=== PATIENT | female | born 1935 | race Caucasian/White ===

== ENCOUNTER 2019-09-17 14:24 | Emergency (ER) | payer MEDICARE, OTHER, SELFPAY ==
[2019-09-17 14:25] VITALS: BP 145/70; PULSE 82; RESP 16; TEMP 36.6; O2SAT 91; BMI 24.7
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
--- NOTE | 2019-09-17 14:41 | CT_ITS ---
WS: [id number] CT head wo con* [id number] REASON FOR EXAM: ams IV CONTRAST ADMINISTERED: None. TOTAL EXAM DLP: 792.[address] scans at [facility] use at least one of these dose optimization techniques: automat ed exposure control; mA and/or kV adjustment per patient size (includes targeted exams where dose is matched to clinical indication); or iterative reconstruction. 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 The posterior fossa appear to be essentially normal. The fourth ventricle is dilated. 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 There is transependymal migration of spinal fluid suggesting interval atrophy. There is effacement of the sulci in the frontal lobes. The paraventricular areas show no definite infarcted areas or mass effect. The mari was normal. The cerebellum showed no definite abnormalities. CT/CT head wo con* [id number] IMPRESSION: Moderately advanced cerebral atrophy. 

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
[2019-09-17 15:28] LABS: Basophils # 0.1 10^3/uL (0.0-0.1); Basophils % 0.8 %; Eosinophils # 0.2 10^3/uL (0.0-0.8); Hematocrit 40.3 % (37.0-47.0); Hemoglobin 12.4 g/dL (11.5-15.3); Lymphocytes # 1.8 10^3/uL (0.8-4.8); Lymphocytes % 16.7 %; Mean Corpuscular HGB Conc 30.8 g/dL (30.0-36.0); Mean Corpuscular Hemoglobin 32.3 pg (28.0-34.0); Mean Corpuscular Volume 104.9 fL (81-99); Mean Platelet Volume 9.5 fL (7.4-10.4); Monocytes # 1.1 10^3/uL (0.2-0.9); Monocytes % 10.4 %; Neutrophils # 7.2 10^3/uL (1.8-7.7); Nucleated Red Blood Cells % 0 %; Platelet Count 292 10^3/cmm (130-400); Red Blood Count 3.84 10^6/uL (4.1-5.3); White Blood Count 10.5 10^3/uL (4.0-10.0)
--- NOTE | 2019-09-17 15:42 | XR_ITS ---
WS: [id number] XR KUB portable [id number] REASON FOR EXAM: possible FB in stomach FINDINGS: Heavy arteriosclerotic changes in the aorta and iliac arteries are seen. As well as the fem oral arteries. There is debris seen in the colon but no definite lesions in the stomach are identifie d. The lumbar spine and pelvis bony structures appear to be essentially normal. XR/XR KUB portable [id number] IMPRESSION: Nonspecific abdominal findings. Heavy arteriosclerotic changes of the aorta deloris ac arteries.
[2019-09-17 15:52] VITALS: BP 146/75; PULSE 74; RESP 16; O2SAT 90
[2019-09-17 16:09] LABS: Alanine Aminotransferase 81 U/L (0-33); Albumin Level 3.8 g/dL (3.5-5.2); Alkaline Phosphatase 78 IU/L (35-105); Anion Gap 17.9 (5-19); Aspartate Amino Transferase 48 U/L (0-32); Blood Urea Nitrogen 22 mg/dL (8-23); Calcium 9.5 mg/dL (8.5-10.5); Carbon Dioxide 23 mmol/L (22-29); Chloride 97 mmol/L (98-107); Creatinine Clr Calc Pharmacy 24.6049; Globulin 3.6 g/dL (1.3-4.6); Glucose 317 mg/dL (65-115); Osmolality Calculated 285 mOsm/kg (285-295); Potassium 4.9 mmol/L (3.5-5.1); Salicylate 0.6 mg/dL (3-10); Sodium 133 mmol/L (136-145); Thyroid Stimulating Hormone 7.26 uIU/mL (0.27-4.20); Total Bilirubin 0.4 mg/dL (0.15-1.2); Total Protein 7.4 g/dL (6.6-8.7)
[2019-09-17 16:25] LABS: Add Urine Microscopic? NO
[2019-09-17 16:27] LABS: Acetaminophen < 5.0 ug/mL (10-30)
[2019-09-17 16:37] LABS: Amphetamines Screen Urine Negative (Negative); Barbiturates Screen Urine Negative (Negative); Benzodiazepines Screen Urine Negative (Negative); Cocaine Screen Urine Negative (Negative); Opiate Screen Urine Negative (Negative); PCP Screen Urine Negative (Negative); THC Screen Urine Negative (Negative)
[2019-09-17 16:56] LABS: Bilirubin Urine Neg (NEGATIVE); Blood Urine Neg (Negative); Glucose Urine UA 4+ (Normal); Ketones Urine Negative (Negative); Leukocyte Esterase Urine Negative (Negative); Nitrate Urine Negative (Negative); Protein Urine Neg (Negative); Specific Gravity, Urine 1.015 (1.005-1.030); Urine Appearance Clear (CLEAR); Urine Color Yellow (Yellow); Urobilinogen Urine Norm (Negative); pH Urine 5 (5-7)
[2019-09-17 18:06] VITALS: BP 120/52; PULSE 78; RESP 18; O2SAT 92
[2019-09-17 20:00] VITALS: BP 128/74; PULSE 82; RESP 16
[2019-09-17] MEDS: insulin regular-human 100 units/1 mL 5 UNIT IVP (20:18)
[2019-09-17 20:30] VITALS: PULSE 76; RESP 16; O2SAT 96
--- NOTE | 2019-09-17 20:36 | PC.NURSE ---
patient up to bedside commode
--- NOTE | 2019-09-17 20:40 | PC.NURSE ---
Received call from [facility] that they couldn't accept patient because her labs were off and they needed an ekg.
--- NOTE | 2019-09-17 20:43 | PC.NURSE ---
Received call from [facility], they need glucose below 200 and they will accept patient.
--- NOTE | 2019-09-17 21:00 | PC.NURSE ---
Called back to [facility], ekg faxed and was told that they needed her blood sugar blow 200, informed and meds given.
[2019-09-18] MEDS: insulin regular-human 100 units/1 mL 5 UNIT SUBCUT (00:41)
[2019-09-18 01:00] VITALS: PULSE 74; RESP 16; O2SAT 98
--- NOTE | 2019-09-18 02:00 | PC.NURSE ---
Blood sugar 105n faxed results to [facility] and attempt multiple time to call without an answer.
--- NOTE | 2019-09-18 02:12 | PC.NURSE ---
Fingerstick glucose 105, NELY Tripp notified.
--- NOTE | 2019-09-18 02:38 | PC.NURSE ---
Patient given a snack and assisted up for BRP.
[2019-09-18 06:00] VITALS: BP 124/76; PULSE 78; RESP 16; O2SAT 96
--- NOTE | 2019-09-18 06:44 | PC.NURSE ---
Attempted to contact [facility] again with no answer.
--- NOTE | 2019-09-18 07:10 | PC.NURSE ---
Spoke with Erin at [facility] she stated that she will resubmit thsi patient to her Dr. and she would like another BMp drawn and faxed.
[2019-09-18 07:53] LABS: Glucose Point of Care 105 mg/dL (70-110)
[2019-09-18 07:53] LABS: Glucose Point of Care 207 mg/dL (70-110)
[2019-09-18 07:53] LABS: Glucose Point of Care 270 mg/dL (70-110)
[2019-09-18 07:57] LABS: Alanine Aminotransferase 74 U/L (0-33); Albumin Level 3.7 g/dL (3.5-5.2); Alkaline Phosphatase 67 IU/L (35-105); Anion Gap 13.6 (5-19); Aspartate Amino Transferase 47 U/L (0-32); Blood Urea Nitrogen 24 mg/dL (8-23); Calcium 9.2 mg/dL (8.5-10.5); Carbon Dioxide 27 mmol/L (22-29); Chloride 102 mmol/L (98-107); Creatinine Clr Calc Pharmacy 24.6049; Glucose 130 mg/dL (65-115); Osmolality Calculated 285 mOsm/kg (285-295); Potassium 4.6 mmol/L (3.5-5.1); Sodium 138 mmol/L (136-145); Total Bilirubin 0.4 mg/dL (0.15-1.2); Total Protein 6.7 g/dL (6.6-8.7)
[2019-09-18 09:28] VITALS: BP 112/58; PULSE 72; RESP 16; TEMP 36.9; O2SAT 95
[2019-09-18 13:44] LABS: Glucose Point of Care 132 mg/dL (70-110)
== END 2019-09-18 11:09 ==
PROVIDERS: Nurse Practitioner Family; Emergency Provider Family Medicine; Family Provider Internal Medicine; PCP Internal Medicine
DX: F03.91 Unspecified dementia, unspecified severity, with behavioral disturbance (principal); Z79.82 Long term (current) use of aspirin; Z79.84 Long term (current) use of oral hypoglycemic drugs; Z79.01 Long term (current) use of anticoagulants; Z87.891 Personal history of nicotine dependence
CPT/HCPCS: 12345; 36415; 36416; 70450; 71045; 74018; 80053; 80306; 80307; 81003; 82962; 84443; 85025; 96372; 96374; 96375; 96376; 99284; 99285; J1815

== ENCOUNTER 2019-11-09 08:48 | Emergency (ER) | payer MEDICARE, OTHER, SELFPAY ==
[2019-11-09] VITALS (15 sets, daily range): BP systolic 90–170; BP diastolic 46–65; PULSE 60–62; RESP 10–21; TEMP 36.9; O2SAT 87–99; BMI 24.7
--- NOTE | 2019-11-09 09:05 | ECG_ITS ---
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 Measurements Intervals [place] Rate: 60 P: 265 IA: 227 QRS: 266 QRSD: 177 T: 95 QT: 503 QTc: 503 Interpretive Statements ELECTRONIC ATRIAL PACEMAKER ELECTRONIC VENTRICULAR PACEMAKER ABNORMAL RHYTHM ECG No previous ECG available for comparison Electronically Signed On 11-09-2019 21:52:25 CDT by Tamara Palma M.D. [id number]
--- NOTE | 2019-11-09 09:05 | XRR_ITS ---
PROCEDURE INFORMATION: Exam: XR Chest, 1 View Exam date and time: 11/09/2019 9:38 AM Age: 84 years old Clinical indication: Type not specified; Prior surgery; Surgery date: 6+ months; Surgery type: Open heart; Patient HX: C/O chest pain and shortness of breath; Additional info: SOB TECHNIQUE: Imaging protocol: XR of the chest Views: 1 view. COMPARISON: CR XR chest 1V portable [id number] 09/17/2019 3:01 PM FINDINGS: The thorax is partially obscured by overlying EKG leads. Tubes, catheters and devices: Bilateral pacemaker wires. Lungs: Asymmetric left basilar airspace/pleural disease. Interstitial prominence. Heart/Mediastinum: Cardiomegaly and increased caliber of the pulmonary vasculature. Bones/joints: Osteopenia. Median sternotomy. XR/XR chest 1V portable [id number] IMPRESSION: 1. Cardiomegaly and increased caliber of the pulmonary vasculature. 2. Asymmetric left basilar airspace/pleural disease.
--- NOTE | 2019-11-09 09:08 | ED_ITS ---
HPI - General Adult General: Chief complaint: General Medical Stated complaint: LOW O2 SATS Time Seen by Provider: 11/09/19 09:06 History of Present Illness: HPI narrative: 84-year-old female who presents to the emergency room with complaints of leg pain knee pain and swelling particularly in her left arm. Some of it appears chronic there is also reportedly she was hypoxic at the longterm evidently they told EMS on 6 L she was barely keeping 86% but on arrival here at 2 L/min she is at 97% her some confusion with the EMS staff asked whether or not she is regularly on oxygen at the longterm. When asked the patient what wrong she repeatedly states there is water running out of my arms and legs all over me. Her clothing is dry she does have a small skin tear on her left arm posterior aspect of the hyperthenar eminence where there is a little bit of serous fluid drainage no active bleeding. There is no signs of infection. She denies any significant shortness of breath or chest pain at this time. She is a resident of a longterm. Onset (ago): hour(s) Location: upper extremity Radiation: non-radiation Severity: mild Relieving factors: none Exacerbating factors: none Associated symptoms: Reports confusion, short of breath and weakness; Deny cough, diaphoresis, dyspnea, fevers/chills, nausea, syncope or vomiting Treatments prior to arrival: none Review of Systems Const: Denies: diaphoresis ENMT: Denies: throat pain, ear or mastoid pain, nasal discharge or nasal congestion Card: Denies: syncope Resp: Denies: dyspnea, productive cough or non-productive cough GI: Denies: abdominal pain, nausea, vomiting, hematemesis, coffee ground marcie sis, diarrhea, constipation, bloating, hematochezia or melena : Denies: flank pain, difficulty voiding, dysuria, urinary frequency or urinary urgency Neuro: Reports: confusion PFSH ED PFSH: Social History Smoking and tobacco status: never smoked Physical Exam Const: COMMON NORMALS: no acute distress GENERAL APPEARANCE: cooperative and comfortable HENMT: COMMON NORMALS: normocephalic, atraumatic, hearing grossly normal bilaterally, external ears normal, EAC's normal, TM's normal bilaterally, Normal nasal mucous membranes and turbinates present, moist oral mucous membranes and oropharynx normal HEAD & SCALP: normocephalic and atraumatic NOSE: Normal nasal mucous membranes and turbinates present EXTERNAL EAR: Yes external ears normal EXTERNAL AUDITORY CANAL: EAC's normal TYMPANIC MEMBRANE: TM's normal bilaterally Eye: COMMON NORMALS: Equal, round and reactive pupils present, EOMs intact bilaterally, conjunctivae normal and no scleral icterus CONJUNCTIVA: Yes conjunctivae normal PUPIL: Yes Equal, round and reactive pupils present Neck/C-Spine: COMMON NORMALS: full ROM, no lymphadenopathy, supple and no JVD Lymph: LYMPHATIC: no lymphadenopathy noted and no lymphedema noted Resp: COMMON NORMALS: normal respiratory effort, No retractions, No use of accessory muscles and clear to auscultation bilaterally AUSCULTATION: clear to auscultation bilaterally Cardio: COMMON NORMALS: no JVD, regular rate, regular rhythm and No murmurs present (Cardio) RATE: regular rate RHYTHM: regular rhythm GI: COMMON NORMALS: Soft to palpation and No hepatosplenomegaly present AUSCULTATION: Yes normoactive bowel sounds PALPATION: Yes Soft to palpation, No Tenderness to palpation present (GI), No Guarding due to palpation present (GI) and Yes No hepatosplenomegaly present Extremity: COMMON NORMALS: normal to inspection, capillary refill normal, no clubbing, cyanosis or edema, no calf tenderness and no pedal edema Skin: COMMON NORMALS: no rashes or lesions noted GENERAL SKIN EXAM: no rashes or lesions noted Course Vital Signs: Vital signs: Vital Signs Temperature 98.4 F 11/09/19 08:48 Pulse Rate 60 11/09/19 15:07 Respiratory Rate 16 11/09/19 15:07 Blood Pressure 102/57 11/09/19 15:07 Pulse Oximetry 95 11/09/19 15:07 MDM - General Adult MDM Narrative: Medical decision making narrative: Patient a large loose stool foul-smelling in the emergency room concerning for C. difficile. It is prolonged her stay C. difficile was indeed positive. We will treat her as above. I did increase her Lasix for 3 days asked her to go back to 20 mg daily after 3 days to help with the swelling. Noted on the discharge directions it was at 5 days was unable leave the computer to change it so we made a notation elsewhere on the chart and reviewed with the patient and her family member. Lab Data: Labs: Lab Results 06/26/20 06/26/20 Range/Units 09:43 09:43 WBC 12.0 H (4.0-10.0) 10^3/ uL RBC 4.09 L (4.1-5.3) 10^6/u L Hgb 12.1 (11.5-15.3) g/dL Hct 42.5 (37.0-47.0) % MCV 103.9 H (81-99) fL MCH 29.6 (28.0-34.0) pg MCHC 28.5 L (30.0-36.0) g/dL RDW 14.3 (12.1-15.1) % Plt Count 329 (130-400) 10^3/c mm MPV 9.3 (7.4-10.4) fL Total Counted 100 (0-100) Absolute Neutrophi ls 8.0 H (1.4-6.5) 10^3/c mm Segmented Neutroph ils 66 % Abs Segm Neuts (Ma n) 7.9 H (1.6-7.1) 10/cmm Band Neutrophils 1.0 % Abs Band Neuts (Ma n) 0.1 (0.0-1.2) 10^3/c mm Lymphocytes (Manua l) 18 % Monocytes (Manual) 9.0 % Absolute Monocytes 1.1 H (0.1-0.6) 10^3/c mm Eosinophils (Manua l) 6 % Absolute Eosinophi ls 0.7 (0.0-0.7) 10^3/c mm Platelet Estimate Normal (Normal) Sodium 144 (136-145) mmol/L Potassium 4.1 (3.5-5.1) mmol/L Chloride 102 (98-107) mmol/L Carbon Dioxide 31 H (22-29) mmol/L Anion Gap 15.1 (5-19) BUN 46 H (8-23) mg/dL Creatinine 1.6 H (0.5-0.9) mg/dL Glucose 98 (65-115) mg/dL Calculated Osmolal ity 296 H (285-295) mOsm/k g Calcium 9.0 (8.5-10.5) mg/dL Total Bilirubin 0.4 (0.15-1.2) mg/dL AST 46 H (0-32) U/L ALT 53 H (0-33) U/L Alkaline Phosphata se 80 (35-105) IU/L NT-Pro-B Natriuret Pep 7264 H (0-450) pg/mL Total Protein 7.0 (6.6-8.7) g/dL Albumin 3.5 (3.5-5.2) g/dL Globulin 3.5 (1.3-4.6) g/dL Discharge Plan Discharge Patient Disposition: Home, Self-Care Condition: Stable Prescriptions: New metronidazole 500 mg tablet 500 mg PO Q8H Qty: 30 RF: 0 furosemide 40 mg tablet 40 mg PO QAM Qty: 5 RF: 0 Held Lasix 20 mg Tablet 20 mg PO DAILY RF: 0 Hold Instructions: Resume on 11/14/19. Result increased to 40 mg daily for 5 days then decrease to 20 mg daily No Action amiodarone 200 mg Tablet 200 mg PO BID RF: 0 gabapentin 100 mg Capsule 100 mg PO TID RF: 0 Bystolic 2.5 mg Tablet 5 mg PO DAILY RF: 0 Eliquis 2.5 mg Tablet 2.5 mg PO BID RF: 0 Seroquel 25 mg Tablet 12.5 mg PO DAILY RF: 0 hydralazine 10 mg Tablet 10 mg PO TID RF: 0 acetaminophen 325 mg Tablet 325 mg PO QID PRN (Reason: Pain) RF: 0 Miralax 17 gram Powder In Packet 17 g PO DAILY PRN (Reason: Constipation) RF: 0 Senna-S 8.6-50 mg Tablet 1 tab-cap PO BID RF: 0 Miconazole 7 2 % Cream 1 % VAGINAL DAILY RF: 0 Milk of Magnesia 400 mg/5 mL Suspension 400 mg PO DAILY PRN (Reason: Constipation) RF: 0 bisacodyl 10 mg Suppository 10 mg AR DAILY PRN (Reason: Constipation) RF: 0 Enema 19-7 gram/118 mL Enema 118 ml AR DAILY PRN (Reason: Constipation) RF: 0 Flonase Allergy Relief 50 mcg/actuation [place],Suspension 2 spray INTRANASAL DAILY PRN (Reason: Allergy Symptoms) RF: 0 Novolog Flexpen U-100 Insulin 100 unit/mL (3 mL) Insulin Pen See Rx Instructions .ROUTE .COMPLEX RF: 0 Pro-Stat AWC 17-100 gram-kcal/30 mL Liquid 30 ea PO BID RF: 0 Tresiba FlexTouch U-100 100 unit/mL (3 mL) Insulin Pen 25 unit SUBCUT DAILY RF: 0 Discharge Orders: Discharge Order (Routine); Ordered 11/09/19 Ordered By: Binh Roberts Referrals: Lisa Garcia MD [Primary Care Provider] - Discharge Diet: Usual diet Discharge Activity: Resume usual activity Activity Restrictions/Additional Instructions: Note please hold Lasix 20 mg for 3 days (rather than 5) -for 3 days increase to 40 mg daily then resume 20 mg daily. This is a change from the above notes. Please only increase for 3 days rather than 5. Start Flagyl 500 mg 3 times daily for 10 days. Discharge Date/Time: 11/09/19 16:02 Coding Level of Care Code ED Dining Service Inspector for Niraj Fwd Exam Comprehensive
[2019-11-09 09:54] LABS: Hematocrit 42.5 % (37.0-47.0); Hemoglobin 12.1 g/dL (11.5-15.3); Mean Corpuscular HGB Conc 28.5 g/dL (30.0-36.0); Mean Corpuscular Hemoglobin 29.6 pg (28.0-34.0); Mean Corpuscular Volume 103.9 fL (81-99); Mean Platelet Volume 9.3 fL (7.4-10.4); Platelet Count 329 10^3/cmm (130-400); Red Blood Count 4.09 10^6/uL (4.1-5.3); Red Cell Distribution Width 14.3 % (12.1-15.1)
[2019-11-09 10:24] LABS: Alanine Aminotransferase 53 U/L (0-33); Albumin Level 3.5 g/dL (3.5-5.2); Alkaline Phosphatase 80 IU/L (35-105); Anion Gap 15.1 (5-19); Aspartate Amino Transferase 46 U/L (0-32); Blood Urea Nitrogen 46 mg/dL (8-23); Carbon Dioxide 31 mmol/L (22-29); Chloride 102 mmol/L (98-107); Globulin 3.5 g/dL (1.3-4.6); Glucose 98 mg/dL (65-115); NT Pro B Type Natriuretic Pept 7264 pg/mL (0-450); Osmolality Calculated 296 mOsm/kg (285-295); Potassium 4.1 mmol/L (3.5-5.1); Sodium 144 mmol/L (136-145); Total Bilirubin 0.4 mg/dL (0.15-1.2)
[2019-11-09 10:53] LABS: Absolute Eosinophils 0.7 10^3/cmm (0.0-0.7); Absolute Segmented Neutrophil 7.9 10/cmm (1.6-7.1); Band Neutrophils Absolute 0.1 10^3/cmm (0.0-1.2); Eosinophils 6 %; Lymphocytes 18 %; Monocytes Absolute 1.1 10^3/cmm (0.1-0.6); Platelet Estimate Normal (Normal); Segmented Neutrophils 66 %; Total Cells Counted 100 (0-100)
[2019-11-09] MEDS: FUROsemide 10 mg/mL SDV 4mL 40 MG IM (11:59)
[2019-11-09] MEDS: acetaminophen 325 mg Tablet 650 MG PO (12:08)
== END 2019-11-09 16:02 | disposition home or self-care (01) ==
PROVIDERS: Nurse Practitioner Family; Emergency Provider Family Medicine; PCP Internal Medicine
DX: R41.0 Disorientation, unspecified (principal); R06.02 Shortness of breath; Z79.01 Long term (current) use of anticoagulants; Z79.4 Long term (current) use of insulin
CPT/HCPCS: 12345; 36415; 71045; 80053; 83880; 85007; 85027; 87493; 93005; 96372; 99283; J1940